=== PATIENT | female | born 1970 | race Caucasian/White ===

== ENCOUNTER → 2020-02-15 | Outpatient (CLI) | payer BC | LOC: MC.RAD 10:34 | DX: Z12.31 Encounter for screening mammogram for malignant neoplasm of breast (principal) ==

== ENCOUNTER → 2020-02-24 | Outpatient (CLI) | payer BC | LOC: MC.RAD 13:51 | DX: R92.2 Inconclusive mammogram (principal) ==

== ENCOUNTER 2020-10-11 05:37 | Emergency (ER) | payer OTHER ==
[~2020-10-11] VITALS: Ht 162.6 cm; Wt 85.5 kg
[2020-10-11 05:52] VITALS: TEMP 97
[2020-10-11 07:45] VITALS: BP 124/94; PULSE 66
== END 2020-10-11 07:45 | disposition home or self-care (01) ==
LOC: COL.ER 05:37
DX: R04.0 Epistaxis (principal); F17.290 Nicotine dependence, other tobacco product, uncomplicated

== ENCOUNTER 2021-03-04 13:45 | Outpatient (RCR) | payer OTHER | END 2021-04-05 | LOC: PT.GENESIS | DX: M76.61 Achilles tendinitis, right leg (principal); M79.672 Pain in left foot ==

== ENCOUNTER → 2021-04-01 | Outpatient (CLI) | payer OTHER | LOC: MC.RAD 14:37 | DX: Z12.31 Encounter for screening mammogram for malignant neoplasm of breast (principal) ==

== ENCOUNTER → 2022-08-15 | Outpatient (CLI) | payer OTHER | LOC: MC.RAD 05-30 14:15 | DX: Z12.31 Encounter for screening mammogram for malignant neoplasm of breast (principal) ==

== ENCOUNTER → 2023-09-11 | Outpatient (CLI) | payer OTHER | LOC: MC.RAD 13:15 | DX: Z12.31 Encounter for screening mammogram for malignant neoplasm of breast (principal) ==